=== PATIENT | female | born 1985 | race Caucasian/White ===

== ENCOUNTER 2016-10-09 11:08 | Emergency (ER) | payer OTHER ==
[2017-01-05] MEDS ORDERED: MULTIVITAMINS1 EAC2 PO (17:04)
[2017-01-05] MEDS ORDERED: CLINDAMYCIN HC300 MG PO (17:06)
[2017-01-15] MEDS ORDERED: ROCEPHIN 11 G/50 ML INJ (19:52)
[2017-01-15] MEDS ORDERED: VITAMIN C 500500 MG PO (19:52)
[2017-01-15] MEDS ORDERED: NOVOLOG 10100 UNITS/ INJ (19:53)
[2017-01-15] MEDS ORDERED: LEVEMIR100 UNIT/1 SQ (19:54)
[2017-01-15] MEDS ORDERED: POVIDONE IODIN TP (19:55)
[2017-01-15] MEDS ORDERED: PERCOCET 10-321 EACH PO (19:55)
== END 2016-10-09 12:49 | disposition home or self-care (01) ==
LOC: ER1 11:08
DX: S90.122A Contusion of left lesser toe(s) without damage to nail, initial encounter (principal); E11.9 Type 2 diabetes mellitus without complications; Z88.5 Allergy status to narcotic agent; W22.03XA Walked into furniture, initial encounter; Y92.009 Unspecified place in unspecified non-institutional (private) residence as the place of occurrence of the external cause
CPT/HCPCS: 73630; 99283

== ENCOUNTER → 2016-10-09 | Outpatient (CLI) | payer OTHER ==
[~2016-10-09] MED LIST: CLINDAMYCIN HC300 MG PO; HUMULIN R100 UNIT/1 SQ; HYDROCODON-ACE1 EAC6 PO; LEVAQUIN750 MG PO; LEVEMIR100 UNIT/1 SQ; MULTIVITAMINS1 EAC2 PO; NOVOLIN N100 UNIT/1 SQ; NOVOLOG 10100 UNITS/ INJ; PERCOCET 10-321 EACH PO; POVIDONE IODIN TP; ROCEPHIN 11 G/50 ML INJ; VITAMIN C 500500 MG PO
== END ==
LOC: LBRF 14:32
DX: L97.519 Non-pressure chronic ulcer of other part of right foot with unspecified severity (principal)
CPT/HCPCS: 87070; 87205

== ENCOUNTER → 2016-10-19 | Outpatient (CLI) | payer OTHER ==
[2016-10-19 09:20] LABS: HEMOGLOBIN 13.7 gm/dl (12.3-15.3); RED BLOOD COUNT 4.88 M/UL (4.00-5.10); WHITE BLOOD COUNT 7.3 K/UL (4.5-11.0)
== END ==
LOC: LAB 08:41
PROVIDERS: Podiatrist Foot & Ankle Surgery
DX: L03.119 Cellulitis of unspecified part of limb (principal)
CPT/HCPCS: 36415; 83036; 85027; 86140

== ENCOUNTER 2016-11-05 17:05 | Inpatient (IN) | payer OTHER ==
[~2016-11-05] VITALS: Ht 165.1 cm; Wt 62.1 kg
[2016-11-05] MEDS ORDERED: CLINDAMYCIN HC300 MG PO (18:29)
[2016-11-05] MEDS ORDERED: HYDROCODON-ACE1 EAC6 PO (18:41)
[2016-11-05] MEDS ORDERED: NOVOLIN N100 UNIT/1 SQ ×2 (18:41→18:42)
[2016-11-05] MEDS ORDERED: HUMULIN R100 UNIT/1 SQ (18:42)
[2016-11-05 20:49] LABS: HEMOGLOBIN 13.7 gm/dl (12.3-15.3); RED BLOOD COUNT 4.92 M/UL (4.00-5.10); WHITE BLOOD COUNT 10.2 K/UL (4.5-11.0)
[2016-11-05 21:17] LABS: BUN/CREATININE RATIO 28 (0-10)
[2016-11-06 06:04] LABS: HEMOGLOBIN 13.2 gm/dl (12.3-15.3); RED BLOOD COUNT 4.76 M/UL (4.00-5.10); WHITE BLOOD COUNT 9.1 K/UL (4.5-11.0)
[2016-11-06 06:20] LABS: BUN/CREATININE RATIO 25 (0-10)
[2016-11-07 05:42] LABS: BUN/CREATININE RATIO 14 (0-10)
[2016-11-08 06:53] LABS: HEMOGLOBIN 11.6 gm/dl (12.3-15.3); WHITE BLOOD COUNT 11.1 K/UL (4.5-11.0)
[2016-11-08 06:56] LABS: RED BLOOD COUNT 4.26 M/UL (4.00-5.10)
[2016-11-08 07:11] LABS: BUN/CREATININE RATIO 10 (0-10)
[2016-11-09 04:52] LABS: BUN/CREATININE RATIO 16 (0-10)
[2016-11-10 05:29] LABS: HEMOGLOBIN 12.2 gm/dl (12.3-15.3); RED BLOOD COUNT 4.38 M/UL (4.00-5.10); WHITE BLOOD COUNT 8.6 K/UL (4.5-11.0)
[2016-11-10 05:55] LABS: BUN/CREATININE RATIO 19 (0-10)
[2016-11-10] MEDS ORDERED: VITAMIN C 500500 MG PO (12:37)
[2016-11-10] MEDS ORDERED: PERCOCET 10-321 EACH PO (12:38)
[2016-11-10] MEDS ORDERED: LEVAQUIN750 MG PO (12:39)
[2017-01-05] MEDS ORDERED: MULTIVITAMINS1 EAC2 PO (17:04)
[2017-01-05] MEDS ORDERED: CLINDAMYCIN HC300 MG PO (17:06)
[2017-01-15] MEDS ORDERED: VITAMIN C 500500 MG PO (19:52)
[2017-01-15] MEDS ORDERED: ROCEPHIN 11 G/50 ML INJ (19:52)
[2017-01-15] MEDS ORDERED: NOVOLOG 10100 UNITS/ INJ (19:53)
[2017-01-15] MEDS ORDERED: LEVEMIR100 UNIT/1 SQ (19:54)
[2017-01-15] MEDS ORDERED: POVIDONE IODIN TP (19:55)
[2017-01-15] MEDS ORDERED: PERCOCET 10-321 EACH PO (19:55)
== END 2016-11-10 19:20 | disposition home or self-care (01) | DRG 617 ==
LOC: M/S 17:26
PROVIDERS: Emergency Medicine; Podiatrist Foot & Ankle Surgery; ADMIT Internal Medicine
PROC: 0Y6M0ZB Detachment at Right Foot, Partial 2nd Ray, Open Approach (ICD-10-PCS; 2016-11-06)
PROC: 0Y6M0ZC Detachment at Right Foot, Partial 3rd Ray, Open Approach (ICD-10-PCS; 2016-11-06)
PROC: 0Y6M0ZD Detachment at Right Foot, Partial 4th Ray, Open Approach (ICD-10-PCS; 2016-11-06)
PROC: 0Y6M0ZF Detachment at Right Foot, Partial 5th Ray, Open Approach (ICD-10-PCS; 2016-11-06)
PROC: 0Y6M0Z9 Detachment at Right Foot, Partial 1st Ray, Open Approach (ICD-10-PCS; principal; 2016-11-06 15:15)
DX: E10.621 Type 1 diabetes mellitus with foot ulcer (principal); M86.671 Other chronic osteomyelitis, right ankle and foot; B96.89 Other specified bacterial agents as the cause of diseases classified elsewhere; L97.519 Non-pressure chronic ulcer of other part of right foot with unspecified severity; Z90.49 Acquired absence of other specified parts of digestive tract; Z88.5 Allergy status to narcotic agent; Z82.5 Family history of asthma and other chronic lower respiratory diseases; Z82.49 Family history of ischemic heart disease and other diseases of the circulatory system; Z83.3 Family history of diabetes mellitus; Z79.4 Long term (current) use of insulin; R00.0 Tachycardia, unspecified; E10.65 Type 1 diabetes mellitus with hyperglycemia
CPT/HCPCS: 36415; 73630; 73718; 80048; 80053; 80202; 82962; 85027; 87040; 87070; 87077; 87186; 87205; C1713; J0690; J1580; J1650; J1956; J2250; J2270; J2405; J2795; J3010; J3370; J7030; J7050; J7070; J7120

== ENCOUNTER → 2020-09-05 | Outpatient (CLI) | payer OTHER ==
[~2020-09-05] MED LIST changes: +BASAGLAR K100 UNIT/1 SQ; +FELDENE10 MG PO; +LEVAQUIN500 MG PO; -LEVEMIR100 UNIT/1 SQ; +NORCO 5-325 TA1 EACH PO; -NOVOLOG 10100 UNITS/ INJ; +NOVOLOG 10100 UNITS/ SQ; +PERCOCET 5/325 T1 EA PO; +PERCOCET 7.5-31 EACH PO; +PRINIVIL10 MG PO; +TYLENOL 500 MG500 MG PO; +VANCOMYCIN HCL1 GM IV; +ZYVOX600 MG PO
== END ==
LOC: KOH-I 08-28 14:00
DX: L02.611 Cutaneous abscess of right foot (principal); Z89.431 Acquired absence of right foot
CPT/HCPCS: 73700

== ENCOUNTER 2021-04-15 22:22 | Inpatient (IN) | payer OTHER ==
[~2021-04-15] VITALS: Ht 165.1 cm; Wt 66.3 kg
[2021-04-15 23:22] LABS: HEMOGLOBIN 10.8 gm/dl (12.3-15.3); RED BLOOD COUNT 3.63 M/UL (4.00-5.10); WHITE BLOOD COUNT 18.4 K/UL (4.5-11.0)
[2021-04-16] MEDS ORDERED: BASAGLAR K100 UNIT/1 SC (05:47)
[2021-04-16] MEDS ORDERED: NOVOLIN R100 UNIT/1 INJ (05:48)
[2021-04-16 07:33] LABS: HEMOGLOBIN 9.3 gm/dl (12.3-15.3); RED BLOOD COUNT 3.31 M/UL (4.00-5.10); WHITE BLOOD COUNT 15.3 K/UL (4.5-11.0)
--- NOTE | 2021-04-16 23:37 | NUR ---
GRAM STAIN ON WOUND CULTURE CAME BACK AND SHOWS EVIDENCE OF MANY WBCS, MANY GRAM POSITIVE COCCI, GRAM NEGATIVE RODS, AND FEW EPITHELIAL CELLS. DR. YOU NOTIFIED.
[2021-04-17 03:37] LABS: HEMOGLOBIN 8.4 gm/dl (12.3-15.3); WHITE BLOOD COUNT 16.9 K/UL (4.5-11.0)
[2021-04-17 03:38] LABS: RED BLOOD COUNT 2.91 M/UL (4.00-5.10)
--- NOTE | 2021-04-17 07:48 | NUR ---
PATIENT GLUCOSE 413 THIS AM. CALLED AND ORDERED TO GIVE 20 UNITS OF HUMALOG.
--- NOTE | 2021-04-18 01:07 | NUR ---
1930 DR. SUAREZ CAME TO THE FLOOR TO ASSESS THE PT 1 DAY POST OP LEFT GREAT TOE AMPUTATION. I REMOVED THE DRESSING AND PACKING FOR HIS ASSESSMENT. VERBAL ORDER FOR THE FOLLOWING: BID DRESSING CHANGE REMOVE DRESSING AND PACKING CLEAN AROUND SITE WITH PROVIDONE USE 1/4 INCH PACKING SOAKED IN DAKIN'S TO PACK WOUND, MAKING SURE TO PACK THE AREA WELL 4X4 SOAKED IN DAKIN'S TO TOP WOUND TOP WITH 4X4 OR ABD DEPENDING ON HOW MUCH DRAINAGE, THEN KERLIX, AND CHACHO WRAP PLEASE ENSURE DRESSING CHANGE EACH SHIFT AND PRN IF DRAINAGE COMES THROUGH THE DRESSING.
[2021-04-18 06:02] LABS: HEMOGLOBIN 8.8 gm/dl (12.3-15.3); RED BLOOD COUNT 3.04 M/UL (4.00-5.10)
[2021-04-19 06:04] LABS: HEMOGLOBIN 9.2 gm/dl (12.3-15.3); RED BLOOD COUNT 3.19 M/UL (4.00-5.10); WHITE BLOOD COUNT 11.3 K/UL (4.5-11.0)
[2021-04-20 07:13] LABS: HEMOGLOBIN 8.3 gm/dl (12.3-15.3); RED BLOOD COUNT 2.88 M/UL (4.00-5.10); WHITE BLOOD COUNT 10.9 K/UL (4.5-11.0)
--- NOTE | 2021-04-20 14:22 | NUR ---
WOUND CARE PERFORMED PER PHYSICIAN'S ORDERS. PATIENT TOLERATED WELL.
[2021-04-21 05:09] LABS: HEMOGLOBIN 8.2 gm/dl (12.3-15.3); RED BLOOD COUNT 2.87 M/UL (4.00-5.10); WHITE BLOOD COUNT 11.3 K/UL (4.5-11.0)
--- NOTE | 2021-04-21 13:43 | NUR ---
WOUND CARE PERFORMED PER MD ORDER. PATIENT TOLERATED WELL.
[2021-04-22 06:49] LABS: HEMOGLOBIN 8.1 gm/dl (12.3-15.3); RED BLOOD COUNT 2.79 M/UL (4.00-5.10); WHITE BLOOD COUNT 10.3 K/UL (4.5-11.0)
[2021-04-23 08:39] LABS: HEMOGLOBIN 8.1 gm/dl (12.3-15.3); RED BLOOD COUNT 2.89 M/UL (4.00-5.10)
[2021-04-23 08:56] LABS: WHITE BLOOD COUNT 13.8 K/UL (4.5-11.0)
[2021-04-24 07:34] LABS: HEMOGLOBIN 7.5 gm/dl (12.3-15.3); RED BLOOD COUNT 2.74 M/UL (4.00-5.10); WHITE BLOOD COUNT 11.4 K/UL (4.5-11.0)
[2021-04-25 07:18] LABS: HEMOGLOBIN 8.3 gm/dl (12.3-15.3); RED BLOOD COUNT 2.89 M/UL (4.00-5.10); WHITE BLOOD COUNT 9.5 K/UL (4.5-11.0)
[2021-04-26 03:52] LABS: HEMOGLOBIN 7.7 gm/dl (12.3-15.3); RED BLOOD COUNT 2.64 M/UL (4.00-5.10)
[2021-04-27 03:30] LABS: HEMOGLOBIN 9.2 gm/dl (12.3-15.3)
[2021-04-27 06:15] LABS: RED BLOOD COUNT 3.17 M/UL (4.00-5.10); WHITE BLOOD COUNT 23.3 K/UL (4.5-11.0)
[2021-04-27 17:03] LABS: HEMOGLOBIN 8.1 gm/dl (12.3-15.3)
[2021-04-27 17:04] LABS: RED BLOOD COUNT 2.78 M/UL (4.00-5.10)
--- NOTE | 2021-04-27 18:25 | NUR ---
PT IS A&OX3 AND HAS STATED THAT SHE IS GOING TO SIGN OUT AMA IF SHE CAN NOT STOP THE NS FLUIDS AND ONLY RECEIVE ANTIBIOTICS VIA IV. MD AND NURSE EXPLAINED THE DANGERS AND OF NOT RECEIVING FLUIDS, WELL THE BENFIFTS OF CONTINUING. THE PT VOICED UNDERSTANDING, BUT HAS CHOSEN TO REFUSE ALL FLUIDS EXCEPT FOR THE ANTIBIOTICS. MD IS AWARE OF THIS DECISION. NAKUL
[2021-04-28 07:41] LABS: HEMOGLOBIN 7.7 gm/dl (12.3-15.3); RED BLOOD COUNT 2.77 M/UL (4.00-5.10); WHITE BLOOD COUNT 13.7 K/UL (4.5-11.0)
[2021-04-28 14:49] LABS: HEMOGLOBIN 8.1 gm/dl (12.3-15.3)
[2021-04-29 09:14] LABS: HEMOGLOBIN 8.1 gm/dl (12.3-15.3); RED BLOOD COUNT 2.77 M/UL (4.00-5.10)
[2021-04-29 09:24] LABS: WHITE BLOOD COUNT 19.6 K/UL (4.5-11.0)
--- NOTE | 2021-04-29 15:38 | NUR ---
[facility] NOTIFIED REGUARDING GFR OF 42. OKAY TO DO CT WITH CONTRAST.
[2021-04-30 05:58] LABS: HEMOGLOBIN 8.3 gm/dl (12.3-15.3); RED BLOOD COUNT 2.89 M/UL (4.00-5.10); WHITE BLOOD COUNT 17.4 K/UL (4.5-11.0)
--- NOTE | 2021-04-30 17:26 | NUR ---
I SPOKE WITH DR TSANG ABOUT POSSIBLE LINE PLACEMENT HE SAID TO WAIT UNTIL DR MARROQUIN SAW PT IN THE AM.
[2021-05-01 06:11] LABS: HEMOGLOBIN 7.8 gm/dl (12.3-15.3); RED BLOOD COUNT 2.71 M/UL (4.00-5.10); WHITE BLOOD COUNT 15.3 K/UL (4.5-11.0)
--- NOTE | 2021-05-01 22:58 | NUR ---
DRESSING CHANGED @ 2100 ON LEFT FOOT USING POVODINE OINTMENT TO SUTURE SITE AND PLANTAR WOUND BED. DRESSED WITH BULKY DRESSING TO HEEL AND WELL PADDED SPLINT. 2 ROLLS BULKY GAUZE, 4X. PATIENT TOLERATED WELL
[2021-05-02 06:47] LABS: HEMOGLOBIN 7.1 gm/dl (12.3-15.3); RED BLOOD COUNT 2.55 M/UL (4.00-5.10); WHITE BLOOD COUNT 15.2 K/UL (4.5-11.0)
--- NOTE | 2021-05-02 14:29 | NUR ---
WOUND CARE PERFORMED PER PHYSICIAN'S ORDER, PATIENT TOLERATED WELL.
[2021-05-03 05:00] LABS: HEMOGLOBIN 8.7 gm/dl (12.3-15.3); RED BLOOD COUNT 3.06 M/UL (4.00-5.10); WHITE BLOOD COUNT 14.5 K/UL (4.5-11.0)
[2021-05-03] MEDS ORDERED: LANTUS INS100 UTS/M1 SC (08:34)
[2021-05-03] MEDS ORDERED: CHRONULAC20 GM/30 M PO (08:34)
[2021-05-03] MEDS ORDERED: AMLODIPINE BESYL5 MG PO (08:34)
[2021-05-03] MEDS ORDERED: LOPRESSOR 50 MG50 MG PO (08:34)
[2021-05-03] MEDS ORDERED: PERCOCET 5-3251 EACH PO (08:35)
--- NOTE | 2021-05-03 11:19 | NUR ---
REPORT CALLED TO HOME HEALTH RN AT THIS TIME.
--- NOTE | 2021-05-03 14:26 | NUR ---
dressing chanaged and drain pulled per md orders
== END 2021-05-03 14:13 | disposition home health service (06) | DRG 853 ==
LOC: ER1 22:22 → M/S 04-16 02:47 → CDU 04-16 02:47 → M/S 04-16 05:37
PROVIDERS: Emergency Medicine; Internal Medicine; Physician Assistant; Podiatrist Foot & Ankle Surgery; ADMIT Internal Medicine
PROC: 0Y6N0Z9 Detachment at Left Foot, Partial 1st Ray, Open Approach (ICD-10-PCS; 2021-04-16)
PROC: 0LBW0ZZ Excision of Left Foot Tendon, Open Approach (ICD-10-PCS; 2021-04-16)
PROC: 0HRNXK3 Replacement of Left Foot Skin with Nonautologous Tissue Substitute, Full Thickness, External Approach (ICD-10-PCS; 2021-04-25)
PROC: 0Y6N0Z4 Detachment at Left Foot, Complete 1st Ray, Open Approach (ICD-10-PCS; principal; 2021-04-25 17:00)
PROC: 30233N1 Transfusion of Nonautologous Red Blood Cells into Peripheral Vein, Percutaneous Approach (ICD-10-PCS; 2021-05-02)
DX: A41.51 Sepsis due to Escherichia coli [E. coli] (principal); A48.0 Gas gangrene; N17.9 Acute kidney failure, unspecified; Z20.822 Contact with and (suspected) exposure to COVID-19; E10.52 Type 1 diabetes mellitus with diabetic peripheral angiopathy with gangrene; E87.2 Acidosis; L02.612 Cutaneous abscess of left foot; M86.172 Other acute osteomyelitis, left ankle and foot; E11.628 Type 2 diabetes mellitus with other skin complications; L03.116 Cellulitis of left lower limb; A41.1 Sepsis due to other specified staphylococcus; L03.032 Cellulitis of left toe; E78.5 Hyperlipidemia, unspecified; N18.30 Chronic kidney disease, stage 3 unspecified; E10.22 Type 1 diabetes mellitus with diabetic chronic kidney disease; E10.69 Type 1 diabetes mellitus with other specified complication; D63.1 Anemia in chronic kidney disease; E66.9 Obesity, unspecified; D64.9 Anemia, unspecified; K59.00 Constipation, unspecified; R33.9 Retention of urine, unspecified; I12.9 Hypertensive chronic kidney disease with stage 1 through stage 4 chronic kidney disease, or unspecified chronic kidney disease; K64.9 Unspecified hemorrhoids; D75.838 Other thrombocytosis; E10.649 Type 1 diabetes mellitus with hypoglycemia without coma; M65.872 Other synovitis and tenosynovitis, left ankle and foot; Z79.4 Long term (current) use of insulin; Z90.49 Acquired absence of other specified parts of digestive tract; Z88.6 Allergy status to analgesic agent; Z88.8 Allergy status to other drugs, medicaments and biological substances; Z89.431 Acquired absence of right foot; Z82.49 Family history of ischemic heart disease and other diseases of the circulatory system; Z82.5 Family history of asthma and other chronic lower respiratory diseases; Z68.23 Body mass index [BMI] 23.0-23.9, adult
CPT/HCPCS: 36415; 36430; 71045; 73630; 74018; 80048; 80053; 80202; 81001; 82150; 82565; 82570; 82962; 83540; 83550; 83605; 83690; 84300; 84702; 85014; 85018; 85025; 85027; 85652; 86140; 86850; 86900; 86901; 86920; 87040; 87070; 87077; 87186; 87205; 89050; 96365; 96366; 96368; 96375; 99285; C1751; C9113; J0360; J0696; J1100; J1644; J1650; J1940; J2001; J2020; J2185; J2250; J2270; J2405; J2543; J2704; J2795; J3010; J3370; J7030; J7050; J7070; J7120; P9016; P9047; Q4133; Q9967; U0002

== ENCOUNTER 2021-05-13 19:05 | Inpatient (IN) | payer OTHER ==
[~2021-05-13] VITALS: Ht 165.1 cm; Wt 74.4 kg
[~2021-05-13 19:05] MED LIST changes: +AMLODIPINE BESYL5 MG PO; +BASAGLAR K100 UNIT/1 SC; +CHRONULAC20 GM/30 M PO; +LANTUS INS100 UTS/M1 SC; +LOPRESSOR 50 MG50 MG PO; +NOVOLIN R100 UNIT/1 INJ; +PERCOCET 5-3251 EACH PO
[2021-05-13 20:53] LABS: HEMOGLOBIN 9.5 gm/dl (12.3-15.3); RED BLOOD COUNT 3.33 M/UL (4.00-5.10); WHITE BLOOD COUNT 17.2 K/UL (4.5-11.0)
[2021-05-13 21:21] LABS: BUN/CREATININE RATIO 17 (0-10)
[2021-05-14 07:06] LABS: HEMOGLOBIN 9.7 gm/dl (12.3-15.3); RED BLOOD COUNT 3.41 M/UL (4.00-5.10); WHITE BLOOD COUNT 15.7 K/UL (4.5-11.0)
--- NOTE | 2021-05-14 09:13 | NUR ---
PATIENT STATES THAT SHE ISHAVING CHEST PAIN AND SHORTNESS OF BREATH. PATIENT IS NOTED TO BE IN MILD DISTRESS. MADE AWARE OF PATIENT CONDITION WITH NEW ORDERS GIVEN. O2 SAT 95% ON ROOM AIR HR 78-82 BPM.
[2021-05-16 12:14] LABS: HBSAG SCREEN Negative (Negative); HEP B CORE AB, TOT Negative (Negative); HEP C VIRUS AB >11.0 (0.0-0.9)
[2021-05-16 14:14] LABS: ANTISTREPTOLYSIN O AB 93.8 IU/mL (0.0-200.0); COMPLEMENT C3, SERUM 157 mg/dL (82-167); COMPLEMENT C4, SERUM 38 mg/dL (12-38)
[2021-05-16 16:14] LABS: ANTI-DSDNA ANTIBODIES <1 IU/mL (0-9)
[2021-05-16 17:09] LABS: ATYPICAL PANCA <1:20 titer (Neg:<1:20); CYTOPLASMIC (C-ANCA) <1:20 titer (Neg:<1:20); PERINUCLEAR (P-ANCA) <1:20 titer (Neg:<1:20)
[2021-05-17 07:12] LABS: HEMOGLOBIN 8.7 gm/dl (12.3-15.3); RED BLOOD COUNT 3.02 M/UL (4.00-5.10); WHITE BLOOD COUNT 10.8 K/UL (4.5-11.0)
--- NOTE | 2021-05-17 12:35 | NUR ---
PT HAS LOW BLOOD SUGAR, SECOND READING WAS 58 AND DECREASED FROM 31. PT WAS PROVIDED WITH CRACKERS, PEANUT BUTTER, REGULAR SEVEN-UP AND REFUSED THE DEXTROSE GEL, TABLETS. WILL CONTINUE TO MONITOR BLOOD GLUCOSE.
--- NOTE | 2021-05-17 12:43 | NUR ---
DR JACOBS HAS PLACED A CONSULT FOR GI, DR WAS NOTIFIED THAT THERE IS NO COVERAGE FOR GI UNTIL MAY. DR JACOBS STATED THAT HE WILL THINK ABOUT THE PLAN FOR THE PT AND RETURN A CALL TO THE NURSE ON DUTY. WILL CONTINUE TO MONITOR.
--- NOTE | 2021-05-18 11:40 | NUR ---
GURU HAD A BLOOD GLUCOSE OF 59 AT 1105. AMP OF D50 GIVEN. PROVIDER NOTIFIED AND LANTUS ORDER CHANGED FROM 10 UNITS HS TO 5 UNITS HS. BLOOD GLUCOSE RECHECKED 30 MINUTES LATER WITH A RESULT OF 114 WITH HER LUNCH TRAY IN THE ROOM. GURU WAS ADVISED TO BE SURE AND EAT. WILL CONTINUE TO MONITOR.
[2021-05-19 06:20] LABS: HEMOGLOBIN 8.8 gm/dl (12.3-15.3); RED BLOOD COUNT 3.16 M/UL (4.00-5.10); WHITE BLOOD COUNT 9.5 K/UL (4.5-11.0)
[2021-05-19 14:09] LABS: A/G RATIO 0.7 (0.7-1.7); ALBUMIN 2.5 g/dL (2.9-4.4); ALPHA-1-GLOBULIN 0.3 g/dL (0.0-0.4); ALPHA-2-GLOBULIN 1.2 g/dL (0.4-1.0); BETA GLOBULIN 1.3 g/dL (0.7-1.3); GAMMA GLOBULIN 1.2 g/dL (0.4-1.8); IMMUNOGLOBULIN A, QN, SERUM 455 mg/dL (87-352); IMMUNOGLOBULIN G, QN, SERUM 1302 mg/dL (586-1602); IMMUNOGLOBULIN M, QN, SERUM 103 mg/dL (26-217); M-SPIKE Not Observed g/dL (Not Observed); PROTEIN, TOTAL, SERUM 6.5 g/dL (6.0-8.5)
[2021-05-20 06:25] LABS: HEMOGLOBIN 8.7 gm/dl (12.3-15.3); RED BLOOD COUNT 3.06 M/UL (4.00-5.10); WHITE BLOOD COUNT 8.7 K/UL (4.5-11.0)
--- NOTE | 2021-05-21 08:57 | NUR ---
MIDLINE IN RIGHT UPPER ARM PULLED OUT PER VERBAL ORDER FROM MD SOULEYMANE
[2021-05-23 05:38] LABS: HEMOGLOBIN 8.2 gm/dl (12.3-15.3); RED BLOOD COUNT 2.89 M/UL (4.00-5.10); WHITE BLOOD COUNT 9.6 K/UL (4.5-11.0)
[2021-05-27 11:13] LABS: CREATININE, URINE 98.7 mg/dL (Not Estab.)
--- NOTE | 2021-05-27 14:10 | NUR ---
accompanied dr. kraft talking to patient and r/t patient wound on her left foot. had a long discussion of concerns and expectations. patient and agreed to see dr. collier.
--- NOTE | 2021-05-27 14:27 | NUR ---
notified dr. collier for consult and acknowledged
[2021-05-28 06:10] LABS: HEMOGLOBIN 8.9 gm/dl (12.3-15.3); RED BLOOD COUNT 3.17 M/UL (4.00-5.10)
--- NOTE | 2021-05-28 11:04 | NUR ---
patient was seen by dr. collier- discussed wound condition and pain management. patient and spouse satisfied with dr collier visit. dr. collier will order new wound care.
[2021-05-29 06:52] LABS: HEMOGLOBIN 8.9 gm/dl (12.3-15.3); RED BLOOD COUNT 3.11 M/UL (4.00-5.10); WHITE BLOOD COUNT 9.8 K/UL (4.5-11.0)
--- NOTE | 2021-05-29 17:13 | NUR ---
patient pulse ox room air 87%.
[2021-05-30 06:24] LABS: HEMOGLOBIN 8.7 gm/dl (12.3-15.3); RED BLOOD COUNT 3.09 M/UL (4.00-5.10); WHITE BLOOD COUNT 10.1 K/UL (4.5-11.0)
[2021-05-31 07:16] LABS: RED BLOOD COUNT 3.22 M/UL (4.00-5.10); WHITE BLOOD COUNT 10.3 K/UL (4.5-11.0)
[2021-06-01 09:02] LABS: HEMOGLOBIN 8.7 gm/dl (12.3-15.3); RED BLOOD COUNT 3.21 M/UL (4.00-5.10); WHITE BLOOD COUNT 9.1 K/UL (4.5-11.0)
--- NOTE | 2021-06-01 12:55 | NUR ---
DRESSING CHANGE DONE APPROX 10AM PER DR. SUAREZ
[2021-06-02 07:58] LABS: HEMOGLOBIN 8.6 gm/dl (12.3-15.3); RED BLOOD COUNT 3.16 M/UL (4.00-5.10); WHITE BLOOD COUNT 9.7 K/UL (4.5-11.0)
[2021-06-03 07:29] LABS: HEMOGLOBIN 8.4 gm/dl (12.3-15.3); RED BLOOD COUNT 3.05 M/UL (4.00-5.10); WHITE BLOOD COUNT 9.9 K/UL (4.5-11.0)
[2021-06-04 05:56] LABS: HEMOGLOBIN 8.9 gm/dl (12.3-15.3); RED BLOOD COUNT 3.18 M/UL (4.00-5.10); WHITE BLOOD COUNT 10.1 K/UL (4.5-11.0)
--- NOTE | 2021-06-04 09:47 | NUR ---
PT ROOM AIR SAT IS 91%.
[2021-06-05 07:29] LABS: HEMOGLOBIN 8.7 gm/dl (12.3-15.3); RED BLOOD COUNT 3.13 M/UL (4.00-5.10); WHITE BLOOD COUNT 8.9 K/UL (4.5-11.0)
[2021-06-06 03:49] LABS: HEMOGLOBIN 8.8 gm/dl (12.3-15.3); RED BLOOD COUNT 3.17 M/UL (4.00-5.10); WHITE BLOOD COUNT 8.8 K/UL (4.5-11.0)
[2021-06-07 03:34] LABS: HEMOGLOBIN 8.8 gm/dl (12.3-15.3); RED BLOOD COUNT 3.12 M/UL (4.00-5.10); WHITE BLOOD COUNT 8.9 K/UL (4.5-11.0)
--- NOTE | 2021-06-07 20:31 | NUR ---
ON 06/04/21 APPROXIMATELY 1999, Jorje GUALLPA CALLED AND SAID THE PT'S HAD CALLED AND SAID SHE HAD CALLED OUT SEVERAL TIMES WANTING HER PAIN MEDS. I EXPLAINED TO THE HS THAT I HAD BEEN IN THE ROOM TWICE SINCE SHIFT REPORT AND SHE HADN'T ASK FOR MEDS EITHER TIME. AND THAT THE TECH AND TOLD ME A FEW MINUTES AGO THAT SHE RANG OUT FOR MEDS. I EXPLAINED THAT I HAD A PT THAT A FEW MOMENTS PRIOR TO SHIFT REPORT HAD BEEN PLACED ON COMFORT CARE AND HAD BEEN ENSURING HER ORDERS WE IN CORRECTLY. I ALSO HAD A FRESH ORTHO AND HAD BEEN ON THE PHONE WITH YADI AND WOULD GET HER PERCOCET SOON I COULD. I GAVE HER MEDS SHORTLY THEREAFTER, THE JUST CAME OUT OF THE BATHROOM JUST BEFORE I LEFT THE ROOM. THE AND I DID NOT HAVE A CONVERSATION AT ANY TIME THAT NIGHT. EVERY OTHER TIME I WENT INTO THE ROOM, HE WAS ASLEEP. BUT NO COMPLAINT OR FURTHER PROBLEMS OCCURRED. ON 06/05 AMINA WAS MY ORIENTEE AND SHE CARRIED OUT THE CARE FOR THE PATIENT 06/05/21 06/06/21 AND 06/07/21. THE ONLY TIME I WAS IN THE PATIENT'S ROOM WAS TO HOLD HER LEG UP DURING HER DRESSING CHANGE. 06/07/21 SHIFT REPORT A SIGN WAS NOTED ON THE DOOR WRITTEN BY THE OF THE PATIENT. I TOOK THE NOTE OFF THE DOOR AND TOOK IT TO HOUSE, AND I MADE HER A COPY. I HAD PLANNED TO TALK TO THE PATIENT AND THE AND EXPLAIN THAT WE WOULD TRY TO LIMIT OUR TIME IN THE ROOM BUT HIS NOTE COULD NOT EFFECT OUR PATIENT CARE. I DIDN'T GET TO SPEAK TO HIM DUE TO HAVING A PT THAT NEEDED TO BE TRANSFERRED TO PCU AND 2 ADMITS. FRANCINE CAME AND SAID HE HAD CALLED HER AND SHE WAS GOING TO SPEAK WITH HIM. AFTER SHE SPOKE WITH HIM, SHE SAID HE WANTED A DIFFERENT NURSE BECAUSE MY ATTITUDE WAS EFFECTING MY PATIENT CARE. I HADN'T HAD ANY DIRECT PATIENT CARE SINCE 06/04 SINCE MY ORIENTEE AMINA HAD BEEN TAKING CARE OF HER. THE ONLY TIME I HAD BEEN IN HER ROOM WAS TO HOLD HER LEG FOR WOUND CARE 06/05 AND 06/06. AND KIM I HAD WENT INTO THE ROOM WITH KAMILAH TO GET VITALS AND ERASED THE BOARD AND ASK THE PT TO LET US KNOW HOW MUCH SHE HAD DRANK AND WE WOULD WRITE IT ON HER BOARD. AMINA WILL GIVE REPORT TO OC AND WE WILL TAKE ONE OF HER PATIENTS.
--- NOTE | 2021-06-08 01:56 | NUR ---
2300 CHANGED PATIENTS DRESSING, PATIENT TOLERATED WELL
[2021-06-08 03:29] LABS: HEMOGLOBIN 8.8 gm/dl (12.3-15.3); RED BLOOD COUNT 3.17 M/UL (4.00-5.10); WHITE BLOOD COUNT 10.1 K/UL (4.5-11.0)
--- NOTE | 2021-06-08 10:49 | NUR ---
PATIENT REFUSED LANTUS THIS AM D/T LOW FSBS. WHEN CHECKED BEFORE LUNCH, PATIENT TOOK LANTUS DOSE. CHARTED GIVEN AT THAT TIME.
[2021-06-09 06:28] LABS: HEMOGLOBIN 8.6 gm/dl (12.3-15.3); RED BLOOD COUNT 3.11 M/UL (4.00-5.10)
[2021-06-10 04:56] LABS: HEMOGLOBIN 8.6 gm/dl (12.3-15.3); RED BLOOD COUNT 3.09 M/UL (4.00-5.10)
[2021-06-12 10:35] LABS: HEMOGLOBIN 8.7 gm/dl (12.3-15.3); RED BLOOD COUNT 3.14 M/UL (4.00-5.10)
[2021-06-13 04:15] LABS: HEMOGLOBIN 8.5 gm/dl (12.3-15.3); RED BLOOD COUNT 3.05 M/UL (4.00-5.10); WHITE BLOOD COUNT 9.6 K/UL (4.5-11.0)
[2021-06-13] MEDS ORDERED: IPRAT-ALBUT 0.5-3 ML NEB (14:40)
[2021-06-13] MEDS ORDERED: FERROUS SULFAT325 M2 PO (14:40)
[2021-06-13] MEDS ORDERED: COZAAR 25MG TAB25 MG PO (14:40)
[2021-06-13] MEDS ORDERED: CHRONULAC20 GM/30 M PO (14:43)
[2021-06-13] MEDS ORDERED: OXYCONTIN10 MG PO (14:56)
[2021-06-14 07:10] LABS: HEMOGLOBIN 8.5 gm/dl (12.3-15.3); RED BLOOD COUNT 3.07 M/UL (4.00-5.10); WHITE BLOOD COUNT 8.6 K/UL (4.5-11.0)
[2021-06-16 06:47] LABS: HEMOGLOBIN 8.6 gm/dl (12.3-15.3); RED BLOOD COUNT 3.08 M/UL (4.00-5.10); WHITE BLOOD COUNT 9.4 K/UL (4.5-11.0)
[2021-06-17 07:59] LABS: HEMOGLOBIN 8.8 gm/dl (12.3-15.3); RED BLOOD COUNT 3.14 M/UL (4.00-5.10); WHITE BLOOD COUNT 8.5 K/UL (4.5-11.0)
--- NOTE | 2021-06-18 05:42 | NUR ---
PT C/O PAIN THIS AM, STATES THAT SHE WANTS TO WAIT UNTIL LATER TO WEIGH FOR DAILY WEIGHT ORDERS R/T CHF. WCTM
--- NOTE | 2021-06-18 07:17 | NUR ---
06/17/21 1730 C/O LOWER EXTREMITY PAIN PERCOCET 2 TABS GIVEN 06/17/21 1830 NO FURTHER COMPLAINTS AT THIS TIME
[2021-06-19 04:05] LABS: HEMOGLOBIN 8.6 gm/dl (12.3-15.3); RED BLOOD COUNT 3.07 M/UL (4.00-5.10); WHITE BLOOD COUNT 8.6 K/UL (4.5-11.0)
[2021-06-20 02:56] LABS: HEMOGLOBIN 8.6 gm/dl (12.3-15.3); RED BLOOD COUNT 3.1 M/UL (4.00-5.10); WHITE BLOOD COUNT 8.6 K/UL (4.5-11.0)
[2021-06-20] MEDS ORDERED: CHRONULAC20 GM/30 M PO (09:30)
[2021-06-20] MEDS ORDERED: CATAPRES 0.1MG0.1 MG PO (09:30)
[2021-06-20] MEDS ORDERED: INVANZ 1 GM VIAL1 GM IV (09:30)
[2021-06-20] MEDS ORDERED: HYDRALAZINE HCL50 MG PO (09:30)
[2021-06-20] MEDS ORDERED: CLONIDINE HCL0.2 MG PO (09:50)
[2021-06-20] MEDS ORDERED: PERCOCET 7.5-31 EACH PO (10:25)
--- NOTE | 2021-06-20 18:35 | NUR ---
PATIENT HAS RIGHT TRIPLE LUMEN IJ CENTRAL LINE IN DR ANDERSON AWARE SAID TO LEAVE FOR ABX DRESSING [id number]/21
== END 2021-06-20 12:00 | disposition home health service (06) | DRG 698 ==
LOC: ER1 19:05 → CDU 21:55 → M/S 21:55
PROVIDERS: Emergency Medicine; Internal Medicine; Internal Medicine Infectious Disease; Internal Medicine Nephrology; Physician Assistant; Podiatrist Foot & Ankle Surgery; ADMIT Internal Medicine
PROC: 05HM33Z Insertion of Infusion Device into Right Internal Jugular Vein, Percutaneous Approach (ICD-10-PCS; principal; 2021-05-23)
DX: N04.9 Nephrotic syndrome with unspecified morphologic changes (principal); J96.01 Acute respiratory failure with hypoxia; I50.31 Acute diastolic (congestive) heart failure; M86.672 Other chronic osteomyelitis, left ankle and foot; I13.0 Hypertensive heart and chronic kidney disease with heart failure and stage 1 through stage 4 chronic kidney disease, or unspecified chronic kidney disease; I82.611 Acute embolism and thrombosis of superficial veins of right upper extremity; E10.52 Type 1 diabetes mellitus with diabetic peripheral angiopathy with gangrene; A52.16 Charcot's arthropathy (tabetic); J98.11 Atelectasis; N17.9 Acute kidney failure, unspecified; N18.30 Chronic kidney disease, stage 3 unspecified; E10.69 Type 1 diabetes mellitus with other specified complication; E10.621 Type 1 diabetes mellitus with foot ulcer; L97.529 Non-pressure chronic ulcer of other part of left foot with unspecified severity; E87.70 Fluid overload, unspecified; B96.29 Other Escherichia coli [E. coli] as the cause of diseases classified elsewhere; B95.7 Other staphylococcus as the cause of diseases classified elsewhere; Z20.822 Contact with and (suspected) exposure to COVID-19; M65.9 Synovitis and tenosynovitis, unspecified; E66.9 Obesity, unspecified; D63.1 Anemia in chronic kidney disease; I27.20 Pulmonary hypertension, unspecified; R80.9 Proteinuria, unspecified; E10.22 Type 1 diabetes mellitus with diabetic chronic kidney disease; B18.2 Chronic viral hepatitis C; D72.10 Eosinophilia, unspecified; E88.09 Other disorders of plasma-protein metabolism, not elsewhere classified; D50.9 Iron deficiency anemia, unspecified; K64.8 Other hemorrhoids; K59.00 Constipation, unspecified; N18.32 Chronic kidney disease, stage 3b; Z89.512 Acquired absence of left leg below knee; Z90.49 Acquired absence of other specified parts of digestive tract; Z82.49 Family history of ischemic heart disease and other diseases of the circulatory system; Z88.8 Allergy status to other drugs, medicaments and biological substances; Z82.5 Family history of asthma and other chronic lower respiratory diseases; Z83.3 Family history of diabetes mellitus; Z68.31 Body mass index [BMI] 31.0-31.9, adult; Z79.4 Long term (current) use of insulin
CPT/HCPCS: ECHO; 36415; 36600; 51702; 71045; 71046; 73060; 73630; 73700; 80048; 80053; 80069; 80202; 81001; 82009; 82043; 82550; 82553; 82570; 82728; 82784; 82803; 82962; 83036; 83520; 83540; 83550; 83605; 83735; 83874; 83880; 83883; 84100; 84133; 84155; 84156; 84165; 84300; 84484; 85025; 85027; 85610; 85652; 85730; 86038; 86060; 86140; 86160; 86162; 86225; 86256; 86334; 86704; 86706; 86708; 86803; 87040; 87070; 87205; 87340; 89050; 93005; 93306; 93926; 93970; 93971; 94640; 94760; 97110-GP-CQ; 97116; 97116-GP-CQ; 97161; 99285; J0696; J1205; J1335; J1644; J1650; J1756; J1940; J3370; J7030; J7050; J7070; P9047; U0002

== ENCOUNTER 2021-06-28 13:42 | Inpatient (IN) | payer OTHER ==
[~2021-06-28] VITALS: Ht 165.1 cm; Wt 65.3 kg
[~2021-06-28 13:42] MED LIST changes: +CATAPRES 0.1MG0.1 MG PO; +CLONIDINE HCL0.2 MG PO; +COZAAR 25MG TAB25 MG PO; +FERROUS SULFAT325 M2 PO; +HYDRALAZINE HCL50 MG PO; +INVANZ 1 GM VIAL1 GM IV; +IPRAT-ALBUT 0.5-3 ML NEB; +OXYCONTIN10 MG PO
[2021-06-28 14:29] LABS: HEMOGLOBIN 12.2 gm/dl (12.3-15.3); RED BLOOD COUNT 4.36 M/UL (4.00-5.10); WHITE BLOOD COUNT 15.2 K/UL (4.5-11.0)
[2021-06-29 03:35] LABS: WHITE BLOOD COUNT 15.5 K/UL (4.5-11.0)
[2021-06-29 03:36] LABS: RED BLOOD COUNT 3.92 M/UL (4.00-5.10)
[2021-06-30 07:47] LABS: HEMOGLOBIN 10.1 gm/dl (12.3-15.3); RED BLOOD COUNT 3.59 M/UL (4.00-5.10); WHITE BLOOD COUNT 12.3 K/UL (4.5-11.0)
--- NOTE | 2021-06-30 14:05 | NUR ---
patient has been asking for pain medicine q3 hours as ordered, when rate was asked it was always on high end. informed patient of pain appears to be not helping her and pain management provided. reported this to dr. kraft and he acknowledged. patient spouse furious with dr. kraft and requested for ama form. spoken with the patient and she is agreeable to leave. notified dr. kraft, nurse tunnel form placing supervisor, and lead warehouse associate
--- NOTE | 2021-06-30 14:28 | NUR ---
patient and spouse request to for ama and informed them that i will d/c central line and absolutely gets so upset that they are going home with it for they are using it for IV antbiotics at home. informed them that central line has to be discontinued prior to d/c home- adamant that they are not letting me d/c. infomred dr. kraft and received order to inform house. informed house servant and awaiting for her at this time to talk to patient
[2021-07-01 00:58] LABS: ACINETOBACTER BAUMANNII Not Detected (Negative); CANDIDA ALBICANS Not Detected (Negative); CANDIDA KRUSEI Not Detected (Negative); CANDIDA TROPICALIS Not Detected (Negative); ENTEROCOCCUS Not Detected (Negative); ESCHERICHIA COLI Not Detected (Negative); HAEMOPHILUS INFLUENZAE Not Detected (Negative); KLEBSIELLA OXYTOCA Not Detected (Negative); KLEBSIELLA PNEUMONIAE Not Detected (Negative); KPC-CARBAPENEM-RESISTANCE GENE Not Detected (Negative); PROTEUS Not Detected (Negative); PSEUDOMONAS AERUGINOSA Not Detected (Negative); SERRATIA MARCESANS Not Detected (Negative); STAPHYLOCOCCUS AUREUS Not Detected (Negative); STREP AGALACTIAE (GROUP B) Not Detected (Negative); STREP PYOGENES (GROUP A) Not Detected (Negative); STREPTOCOCCUS Not Detected (Negative); vanA/B (VANCOMYCIN RESIST GENE Not Detected (Negative)
[2021-07-01 02:04] LABS: HEMOGLOBIN 10.2 gm/dl (12.3-15.3); RED BLOOD COUNT 3.65 M/UL (4.00-5.10); WHITE BLOOD COUNT 11.3 K/UL (4.5-11.0)
[2021-07-01 02:38] LABS: STAPHYLOCOCCUS DETECTED (Negative); mecA (METHICILLIN RESIST GENE DETECTED (Negative)
--- NOTE | 2021-07-01 12:58 | NUR ---
change illeostomy bag r/t leaking. dr. smith was in the room. applied thin duoderm surrounding area. will monitor
--- NOTE | 2021-07-01 13:01 | NUR ---
contacted dr. collier office and spoken to his nurse r/t patient admission to hospital, consult and wound care. stated will call back
--- NOTE | 2021-07-01 16:17 | NUR ---
patient refused IVF as ordered by dr. mccauley. dr. upton aware of this.
[2021-07-02 09:41] LABS: HEMOGLOBIN 10.5 gm/dl (12.3-15.3); RED BLOOD COUNT 3.73 M/UL (4.00-5.10)
[2021-07-02 09:42] LABS: WHITE BLOOD COUNT 8.3 K/UL (4.5-11.0)
--- NOTE | 2021-07-02 09:52 | NUR ---
dr. upton on the floor seen patient and aware of patient tenderness on her abdomen
--- NOTE | 2021-07-02 13:06 | NUR ---
reported of patient b/p checked after an hour when apresoline given and , no other symptoms reported/noted. received order
--- NOTE | 2021-07-02 17:19 | NUR ---
seen patient and changed dressing himself and will perform wound care as dr. collier demonstrated and instructed. performed dressing prior to admisssion of patient to hosp
[2021-07-03 06:06] LABS: HEMOGLOBIN 9.3 gm/dl (12.3-15.3); RED BLOOD COUNT 3.37 M/UL (4.00-5.10); WHITE BLOOD COUNT 7.8 K/UL (4.5-11.0)
[2021-07-04 06:39] LABS: RED BLOOD COUNT 3.24 M/UL (4.00-5.10); WHITE BLOOD COUNT 7.9 K/UL (4.5-11.0)
[2021-07-04 08:13] LABS: CREATININE, URINE 29.5 mg/dL (Not Estab.)
--- NOTE | 2021-07-05 05:46 | NUR ---
AT 0538 PT STATED THAT SHE WAS NOT FEELING WELL, HAD A HEADACHE, WAS NAUSEATED AND HAD VOMITTED ONCE. BG 98, SEE VITALS CHARTING FOR VS. PT GIVEN ORAL MEDS AT HER REQUEST STATTING SHE DID NOT THINK SHE WOULD VOMIT ANYMORE. WCTM
--- NOTE | 2021-07-05 05:49 | NUR ---
PT REFUSED TO PERFORM DAILY WEIGHT D/T "NOT FEELING WELL" THIS AM. SEE PREVIOUS NOTE FOR MORE INFO
[2021-07-05 06:09] LABS: COMPLEMENT C3, SERUM 85 mg/dL (82-167); COMPLEMENT C4, SERUM 20 mg/dL (12-38)
[2021-07-05 06:43] LABS: HEMOGLOBIN 10.6 gm/dl (12.3-15.3)
[2021-07-05 06:52] LABS: RED BLOOD COUNT 3.78 M/UL (4.00-5.10); WHITE BLOOD COUNT 10.3 K/UL (4.5-11.0)
--- NOTE | 2021-07-05 12:44 | NUR ---
1200 AT BEDSIDE TO PERFORM CENTRAL LINE PLACEMENT TO LEFT JUGULAR. PATIENT TOLERATED WELL. BEDSIDE XRAY CONFIRMED PLACEMENT AND ORDER RECEIVED FROM TO USE CENTRAL LINE.
--- NOTE | 2021-07-05 13:23 | NUR ---
1230 PATIENT BS 44. PATIENT DRINKING APPLE JUICE. BS REPEATED AND WAS 67. PATIENT DRINKING APPL JUICE, REPEAT BS 64. NOTIFIED AND ORDER RECEIVED TO ADMINISTER D50W NOW. REPEAT BS 166. PATIENT SITTING UP IN BED EATING LUNCH. NO DISTRESS NOTED. WCTM.
[2021-07-06 06:23] LABS: WHITE BLOOD COUNT 9.3 K/UL (4.5-11.0)
[2021-07-06 06:41] LABS: HEMOGLOBIN 8.4 gm/dl (12.3-15.3); RED BLOOD COUNT 3.15 M/UL (4.00-5.10)
[2021-07-07 06:25] LABS: HEMOGLOBIN 8.4 gm/dl (12.3-15.3); RED BLOOD COUNT 3.15 M/UL (4.00-5.10); WHITE BLOOD COUNT 8.5 K/UL (4.5-11.0)
--- NOTE | 2021-07-08 00:04 | NUR ---
HAVE NOTICED SEVERAL TIMES THAT THE IV PUMP WOULD BE TURNED OFF OR STOPPED WHEN I HADN'T DONE SO. THE TECH DENIES TOUCHING THE PUMP. I HAVE EDUCATED THE PATIENT AND SIGNIFICANT OTHER OF THE IMPORTANCE OF NOT TOUCHING THE IV PUMP, AND THE SAFETY REASONS TO WHY THAT IS SO. EDUCATED THE PATIENT ABOUT RECEIVING THE ABX ON TIME AND NOT STOPPING AND RESTARTING THE PUMP. WILL INCREASE ROUNDING FREQUENCY WHILE IV FLUIDS/ABX ARE RUNNING.
[2021-07-08 06:27] LABS: HEMOGLOBIN 8.9 gm/dl (12.3-15.3); RED BLOOD COUNT 3.18 M/UL (4.00-5.10); WHITE BLOOD COUNT 9.4 K/UL (4.5-11.0)
--- NOTE | 2021-07-08 22:18 | NUR ---
CALLED PHARMACY TO GET LOKELMA ORDERED BY DR. TSANG. ACCORDING TO PHARMACY, WE DO NOT HAVE ANY IN THE HOSPITAL. WAS TOLD BY PHARMACY THAT DR. TSANG HAS ALREADY BEEN CONTACTED AND MADE AWARE. NO NEW ORDERS AT THIS TIME. LACTULOSE WAS GIVEN SCHEDULED. ACCORDING TO PHARMACY, DR. TSANG TOLD THEM THAT LACTULOSE WOULD SUFFICE UNTIL TOMORROW WHEN WE COULD GET LOKELMA.
--- NOTE | 2021-07-10 08:54 | NUR ---
DR. CHAVARRIA AWARE OF K LEVEL 5.5 THIS AM WITH LABS. NO NEW ORDERS AT THIS TIME.
[2021-07-12 06:34] LABS: HEMOGLOBIN 9.2 gm/dl (12.3-15.3); RED BLOOD COUNT 3.37 M/UL (4.00-5.10); WHITE BLOOD COUNT 9.7 K/UL (4.5-11.0)
--- NOTE | 2021-07-13 20:15 | NUR ---
BS 126
--- NOTE | 2021-07-13 20:30 | NUR ---
BS 224
--- NOTE | 2021-07-13 22:00 | NUR ---
BS 243
--- NOTE | 2021-07-14 06:34 | NUR ---
BS 256
[2021-07-14 06:40] LABS: HEMOGLOBIN 9.5 gm/dl (12.3-15.3); RED BLOOD COUNT 3.5 M/UL (4.00-5.10); WHITE BLOOD COUNT 10.4 K/UL (4.5-11.0)
--- NOTE | 2021-07-15 01:11 | NUR ---
REALIZED PATIENT OR SIGNIFICANT OTHER HAD TURNED OFF IV PUMP AND UNHOOKED THE LINE FROM HER CENTRAL LINE. PATIENT AND FAMILY HAVE BEEN EDUCATED ABOUT NOT TOUCHING THE EQUIPMENT AND SAFETY.
--- NOTE | 2021-07-16 16:46 | NUR ---
given humalog 5 units r/t caregiver demanding. started getting upset and angry,and informed caregiver that i like to informed patient and caregiver prior to giving patient her medications. caregiver stated 10 units of humalog will cause her sugar to bottom down.
--- NOTE | 2021-07-16 16:53 | NUR ---
reported to dr. reddy of caregiver refusing for humalog to be given as ordered and dr. aguilar acknowledged
[2021-07-18 07:29] LABS: HEMOGLOBIN 11.2 gm/dl (12.3-15.3); RED BLOOD COUNT 4.02 M/UL (4.00-5.10); WHITE BLOOD COUNT 8.6 K/UL (4.5-11.0)
[2021-07-19 07:07] LABS: HEMOGLOBIN 11.8 gm/dl (12.3-15.3); RED BLOOD COUNT 4.37 M/UL (4.00-5.10); WHITE BLOOD COUNT 9.7 K/UL (4.5-11.0)
--- NOTE | 2021-07-21 18:43 | NUR ---
informed dr. aguilar of patient/significant other of refusing lantus as ordered- acknowledged
--- NOTE | 2021-07-22 08:44 | NUR ---
pt recieved 15 units for 456 bs, recheck after 15 minutes bs was 418, he stated no coverage at this time repeat bs check at regular time. Per Dr. Velazquez
[2021-07-23 06:41] LABS: HEMOGLOBIN 10.5 gm/dl (12.3-15.3); RED BLOOD COUNT 3.78 M/UL (4.00-5.10); WHITE BLOOD COUNT 10.3 K/UL (4.5-11.0)
[2021-07-24 03:45] LABS: HEMOGLOBIN 9.6 gm/dl (12.3-15.3); RED BLOOD COUNT 3.51 M/UL (4.00-5.10); WHITE BLOOD COUNT 8.9 K/UL (4.5-11.0)
[2021-07-26 05:13] LABS: HEMOGLOBIN 9.2 gm/dl (12.3-15.3); RED BLOOD COUNT 3.29 M/UL (4.00-5.10); WHITE BLOOD COUNT 9.8 K/UL (4.5-11.0)
[2021-07-27 06:04] LABS: RED BLOOD COUNT 3.26 M/UL (4.00-5.10); WHITE BLOOD COUNT 8.4 K/UL (4.5-11.0)
[2021-07-28 06:45] LABS: HEMOGLOBIN 8.9 gm/dl (12.3-15.3); RED BLOOD COUNT 3.3 M/UL (4.00-5.10); WHITE BLOOD COUNT 8.6 K/UL (4.5-11.0)
--- NOTE | 2021-07-28 21:25 | NUR ---
PATIENT ALBUMIN INFUSION AND ALMOST COMPLETE. THIS RN CALLED TO ANOTHER ROOM. TWO WRAPPED SALINE FLUSHES LEFT ON BEDSIDE TABLE TO FLUSH LINE AFTER ALBUMIN COMPLETE. UPON RETURNING TO ROOM, THE FLUSHES WERE GONE. THE PATIENT AND HER SIGNIFICANT OTHER DENIED ANY KNOWLEDGE OF THE FLUSHES. THE SIGNIFICANT OTHER THAN PROCEEDED TO ASK IF THE PATIENT COULD GET HEPATITIS C FROM FLUSHES. I INFORMED HIM NO BECAUSE THEY WERE UNUSED.
[2021-07-29 04:38] LABS: HEMOGLOBIN 8.5 gm/dl (12.3-15.3); RED BLOOD COUNT 3.03 M/UL (4.00-5.10); WHITE BLOOD COUNT 9.1 K/UL (4.5-11.0)
--- NOTE | 2021-07-29 23:04 | NUR ---
PATIENTS CENTRAL LINE HAS TWO LUMENS THAT WILL NOT FLUSH OR PULL, AND ONE THAT DOES FLUSH WELL PULL, BUT WILL NOT ALLOW FLUIDS OR MEDICATION TO RUN THROUGH. CALLED DR. YOU TO GET FURTHER ORDERS PATIENT HAS ALBUMIN THAT NEEDS TO RUN. ORDERED TO PULL CENTRAL LINE AND TRY TO OBTAIN PERIPHERAL IV ACCESS. TOOK TALITA HILLMAN RN WITH ME TO PULL C LINE. PATIENT CONSENTED, LINE WAS PULLED, TIP INTACT, NO ORDER TO CULTURE. PRESSURE HELD FOR 6 MINUTES. SITE COVERED WITH 2X2 GAUZE AND WHITE PAPER TAPE. PATIENT TOLERATED PROCEDURE WELL. DICTATING MACHINE TRANSCRIBER, LARA, TOOK ULTRASOUND TO TRY TO OBTAIN IV ACCESS, HOWEVER, PATIENT WOULD NOT ALLOW HIM TO TRY TO STICK HER, SAYING THAT SHE WOULD JUST GET A PICC LINE TOMORROW. I HAVE EXPLAINED TO THE PATIENT THAT WITHOUT IV ACCESS, I CANNOT RUN HER FLUIDS OR FINISH HER ALBUMIN TONIGHT. PATIENT VERBALIZES UNDERSTANDING AND STILL REFUSES TO ALLOW US TO OBTAIN IV ACCESS. WILL CONTINUE TO MONITOR PATIENT CONDITION.
--- NOTE | 2021-07-30 19:15 | NUR ---
[address] Mack aat bedside, placed central line to right jugular. Awaiting chest xray to confirm placement. Dr. Mack was made aware patient refused peripheral i.v. access.
--- NOTE | 2021-07-31 02:13 | NUR ---
CALLED RADIOLOGY TO SEE IF THE XRAY FOR CENTRAL LINE CONFIRMATION HAD BEEN READ. SHE SAID IT HAD NOT AT THIS TIME, THAT SHE WOULD "TRY TO SEE WHATS GOING ON" AND THAT SHE WOULD CALL ME BACK WHEN SHE FINDS OUT WHATS GOING ON.
--- NOTE | 2021-07-31 16:10 | NUR ---
1142 -Late Entry Patient blood sugar elevated to 458, called Dr. Pfeiffer orders were for 12 units of regular insulin. Explained to patient orders for 12 units of regular insulin patient stated no that she was not taking 12 units of regular insulin, pat. stated that she would take 7 units of her own regular insulin. S/O at bedside yelling saying " you all are not killing her!" "I am taking her home with me, when she leaves her!" "I am getting an well site drilling engineer before you all kill her!" Explained to patient and s/o that the order was for 12 units of regular insulin because her blood sugar was high. I explained that patient should not take her own insulin due to the risk of rec. double doses of medication. However, s/o continued to yel loudly asking "How long have you or that doctor had diabetes...she has been taking care of herself for [address] Pfeiffer made aware, no new orders.
--- NOTE | 2021-08-01 06:23 | NUR ---
DURING ROUNDS I NOTICED THAT THE PATIENT'S IV FLUIDS WERE TURNED OFF AND UNHOOKED. I ASKED HER WHO TURNED THEM OFF AND SHE STATED THAT SHE HAD FELT BLOATED SO SHE TURNED THEM OFF AND UNHOOKED THEM. I EDUCATED HER ON NOT TOUCHING THE PUMPS OR LINES, AND TO CALL OUT FOR US TO HELP HER. WILL CONTINUE TO MONITOR.
--- NOTE | 2021-08-01 08:26 | NUR ---
Patient refused reccommended dose of insulin (per sliding scale coverage) would only agree to take 5 units of regular insulin for blood sugar of 334
--- NOTE | 2021-08-01 10:21 | NUR ---
Dr. Pfeiffer was made aware patient refusing to take sliding scale insulin as ordered. Per Dr. Pfeiffer she will put in new orders...
--- NOTE | 2021-08-04 08:21 | NUR ---
PATIENT BS 473. NOTIFIED AND ORDER RECEIVED TO ADMINISTER HUMALOG 15 UNITS PER SLIDING SCALE. PATIENT REFUSES 15 UNITS. PATIENT STATES SHE WILL TAKE 5 UNITS OF HUMALOG. NOTIFIED.
[2021-08-05 07:26] LABS: HEMOGLOBIN 8.9 gm/dl (12.3-15.3); RED BLOOD COUNT 3.17 M/UL (4.00-5.10); WHITE BLOOD COUNT 13.6 K/UL (4.5-11.0)
--- NOTE | 2021-08-05 20:52 | NUR ---
DR TSANG ON FLOOR. NOTIFIED HIM THAT PT JUST VOIDED AND HAD 400ML OF CLEAR YELLOW URINE. NO NEW ORDERS NOTED. WILL CONTINUE TO MONITOR.
[2021-08-06 04:54] LABS: HEMOGLOBIN 8.6 gm/dl (12.3-15.3); RED BLOOD COUNT 3.08 M/UL (4.00-5.10); WHITE BLOOD COUNT 14.3 K/UL (4.5-11.0)
--- NOTE | 2021-08-06 05:38 | NUR ---
CALLED CRITICAL CARBON DIOXIDE LEVEL TO DR YOU AND RECIEVED ORDERS. WILL CONTINUE TO MONITOR.
--- NOTE | 2021-08-06 10:12 | NUR ---
1012- NOTIFIED DR. VALLE PT REFUSING TO TAKE SLIDING SCALE INSULIN PRESCRIBED.
--- NOTE | 2021-08-07 08:54 | NUR ---
DR. SPARKS NOTIFIED OF B/P OF AND ORDERED PRN HYDRALZINE. DR. SPARKS ALSO AWARE OF [place] REQUESTING PATIENT BE TRANSFERRED TO ANOTHER FACILITY AND THAT THE HAD TO HAVE SECURITY CALLED ON HIM FOR THROWING OBJECTING AND SLAMMING THE COUCH AGAINST THE WALL CLAIMING THAT WE ARE NOT DOING ANYTHING FOR HIS AND SHE IS GETTING WORSE. DR. VALLE STATES THAT HE WILL CALL OTHER FACILITIES TO BEGIN TRANSFER PROCESS.
[2021-08-07 09:36] LABS: URINE CREATININE 42.9 mg/dL
[2021-08-08 06:53] LABS: HEMOGLOBIN 8.9 gm/dl (12.3-15.3); RED BLOOD COUNT 3.12 M/UL (4.00-5.10); WHITE BLOOD COUNT 11.6 K/UL (4.5-11.0)
--- NOTE | 2021-08-08 13:40 | NUR ---
RECIEVED REPORT FROM FAISAL IN PACU. DR. KEMP PLACED A PERMANENT DIALYSIS CATHETER IN UPPER LEFT CHEST WALL. FAISAL REPORTS THAT THE SITE HAD BEEN BLEEDING BUT HAD STOPPED. DR. KEMP IS AWARE AND REPORTS THAT THE BLEEDING HAS STOPPED. WILL MONITOR PATIENT CLOSELY ONCE SHE RETURNS TO FLOOR.
--- NOTE | 2021-08-08 14:04 | NUR ---
PATIENT RETURNED TO THE FLOOR POST DIALYSIS CATHETER INSERTION COMPLAINING OF PAIN. PREVIOUS PERCOCET DOSE GIVEN AT 1145 AND IS NOT DUE AGAIN UNTIL 1730. NOTIFIED DR. VALLE AND HE ORDERED TO GIVE A ONE TIME DOSE OF 2 TABS PERCOCET 5/325. WILL CONTINUE TO MONITOR PATIENT.
[2021-08-09 03:35] LABS: HEMOGLOBIN 8.2 gm/dl (12.3-15.3); RED BLOOD COUNT 2.91 M/UL (4.00-5.10)
[2021-08-09 03:39] LABS: WHITE BLOOD COUNT 8.5 K/UL (4.5-11.0)
[2021-08-09 08:14] LABS: HBSAG SCREEN Negative (Negative); HEP A AB, IGM Negative (Negative); HEP B CORE AB, IGM Negative (Negative); HEP C VIRUS AB >11.0 (0.0-0.9)
--- NOTE | 2021-08-09 15:16 | NUR ---
PATIENT RETURNED TO THE FLOOR FROM DIALYSIS. THEY REMOVED 1 LITER OFF. HER VITALS ARE STABLE. WILL CONTINUE TO MONITOR PATIENT.
--- NOTE | 2021-08-09 19:03 | NUR ---
NOTIFIED PROVIDER PATIENT STATED RINGING IN EARS AND FLUTTER IN CHEST AFTER FIRST DIALYSIS TREATMENT. PROVIDER ORDERED CONTINUOUS TELEMETRY. WILL CONTINUE TO MONITOR.
--- NOTE | 2021-08-09 23:53 | NUR ---
PATIENT REFUSED ENTIRE AMOUNT OF HUMALOG WOULD ONLY ALLOW ME TO GIVE HER 6 UNITS . SHE DID HOWEVER ALLOW ME TO GIVE HER THE FULL 12 UNITS OF LANTUS.
[2021-08-10 03:43] LABS: RED BLOOD COUNT 3.17 M/UL (4.00-5.10); WHITE BLOOD COUNT 8.3 K/UL (4.5-11.0)
--- NOTE | 2021-08-10 05:40 | NUR ---
HELD MORNING BP MEDS D/T ORDER SPECIFICATIONS FOR SBP.
--- NOTE | 2021-08-10 06:26 | NUR ---
ZACKERY STATED SHE "FELT HER SUGAR WAS LOW" AFTER CHECKING HER BGL IT WAS 41 ADMINISTERED MED PER PROTOCOL AND RE CHECKED AT 172
[2021-08-11 03:17] LABS: HEMOGLOBIN 8.1 gm/dl (12.3-15.3); RED BLOOD COUNT 2.86 M/UL (4.00-5.10); WHITE BLOOD COUNT 9.1 K/UL (4.5-11.0)
[2021-08-11] MEDS ORDERED: ROCALTROL CA0.25 MCG PO (10:20)
[2021-08-11] MEDS ORDERED: HYDRALAZINE HCL50 MG PO (10:20)
[2021-08-11] MEDS ORDERED: LOPRESSOR 50 MG50 MG PO (10:20)
[2021-08-12 02:36] LABS: HEMOGLOBIN 8.1 gm/dl (12.3-15.3); RED BLOOD COUNT 2.83 M/UL (4.00-5.10); WHITE BLOOD COUNT 9.1 K/UL (4.5-11.0)
== END 2021-08-12 16:52 | disposition home health service (06) | DRG 871 ==
LOC: ER1 13:42 → CCU 20:09 → CDU 20:09 → M/S 20:09 → CCU 20:09 → M/S 06-29 16:30 → CCU 08-06 20:44 → M/S 08-07 12:14
PROVIDERS: Internal Medicine; Internal Medicine Infectious Disease; Internal Medicine Nephrology; Physician Assistant; Physician Assistant Medical; ADMIT Internal Medicine
PROC: 02HV33Z Insertion of Infusion Device into Superior Vena Cava, Percutaneous Approach (ICD-10-PCS; 2021-07-05)
PROC: B548ZZA Ultrasonography of Superior Vena Cava, Guidance (ICD-10-PCS; 2021-07-05)
PROC: 02HV33Z Insertion of Infusion Device into Superior Vena Cava, Percutaneous Approach (ICD-10-PCS; principal; 2021-07-30)
PROC: B548ZZA Ultrasonography of Superior Vena Cava, Guidance (ICD-10-PCS; 2021-07-30)
PROC: 02PYX3Z Removal of Infusion Device from Great Vessel, External Approach (ICD-10-PCS; 2021-07-30)
PROC: 0TB03ZX Excision of Right Kidney, Percutaneous Approach, Diagnostic (ICD-10-PCS; 2021-08-05)
PROC: 02HV33Z Insertion of Infusion Device into Superior Vena Cava, Percutaneous Approach (ICD-10-PCS; 2021-08-08)
PROC: B548ZZA Ultrasonography of Superior Vena Cava, Guidance (ICD-10-PCS; 2021-08-08)
PROC: 5A1D70Z Performance of Urinary Filtration, Intermittent, Less than 6 Hours Per Day (ICD-10-PCS; 2021-08-08)
PROC: 5A1D70Z Performance of Urinary Filtration, Intermittent, Less than 6 Hours Per Day (ICD-10-PCS; 2021-08-09)
PROC: 5A1D70Z Performance of Urinary Filtration, Intermittent, Less than 6 Hours Per Day (ICD-10-PCS; 2021-08-12)
DX: A41.02 Sepsis due to Methicillin resistant Staphylococcus aureus (principal); E10.10 Type 1 diabetes mellitus with ketoacidosis without coma; N17.0 Acute kidney failure with tubular necrosis; E10.65 Type 1 diabetes mellitus with hyperglycemia; Z20.822 Contact with and (suspected) exposure to COVID-19; A48.0 Gas gangrene; J18.9 Pneumonia, unspecified organism; N18.6 End stage renal disease; M86.672 Other chronic osteomyelitis, left ankle and foot; I50.32 Chronic diastolic (congestive) heart failure; E87.0 Hyperosmolality and hypernatremia; E87.3 Alkalosis; E10.52 Type 1 diabetes mellitus with diabetic peripheral angiopathy with gangrene; I13.2 Hypertensive heart and chronic kidney disease with heart failure and with stage 5 chronic kidney disease, or end stage renal disease; E10.21 Type 1 diabetes mellitus with diabetic nephropathy; R65.20 Severe sepsis without septic shock; E86.0 Dehydration; D63.1 Anemia in chronic kidney disease; E10.69 Type 1 diabetes mellitus with other specified complication; I27.20 Pulmonary hypertension, unspecified; G47.00 Insomnia, unspecified; F41.9 Anxiety disorder, unspecified; E10.610 Type 1 diabetes mellitus with diabetic neuropathic arthropathy; B19.20 Unspecified viral hepatitis C without hepatic coma; E83.39 Other disorders of phosphorus metabolism; I48.91 Unspecified atrial fibrillation; E87.5 Hyperkalemia; E10.649 Type 1 diabetes mellitus with hypoglycemia without coma; E10.22 Type 1 diabetes mellitus with diabetic chronic kidney disease; Z79.4 Long term (current) use of insulin; Z89.432 Acquired absence of left foot; Z89.431 Acquired absence of right foot; Z90.49 Acquired absence of other specified parts of digestive tract; Z82.49 Family history of ischemic heart disease and other diseases of the circulatory system; Z88.6 Allergy status to analgesic agent; Z88.5 Allergy status to narcotic agent; Z91.14 Patient's other noncompliance with medication regimen; Z79.01 Long term (current) use of anticoagulants
CPT/HCPCS: 36415; 36600; 71045; 71046; 73630; 77001; 77012; 80048; 80053; 80069; 80074; 80076; 81001; 82009; 82010; 82043; 82550; 82553; 82570; 82575; 82652; 82728; 82803; 82962; 83540; 83550; 83605; 83690; 83735; 83874; 83970; 84132; 84133; 84156; 84300; 84484; 85007; 85025; 85027; 85610; 85652; 85730; 86140; 86160; 87040; 87077; 87081; 87150; 87186; 88305; 88313; 88346; 88348; 90935; 90937; 93005; 93971; 94760; 96374; 96375; 96376; 99285; C1750; C1751; C1752; C1769; C9113; G0378; J0360; J0878; J1170; J1335; J1642; J1644; J2001; J2185; J2270; J2405; J2543; J2550; J2704; J3010; J7030; J7040; J7050; J7070; J7120; P9047; Q5105; U0002